=== PATIENT | male | born 1960 | race Caucasian/White ===

== ENCOUNTER → 2020-08-26 | Outpatient (CLI) | payer OTHER ==
[~2020-08-26] MED LIST: ASA81BEC PO; CLINDAMYCIN HC300 MG PO; FAMOTIDINE 40 M40 M1 PO; NITROSTAT0.4 M1 SUBLING; QUESTRAN PACKET4 GM PO; ROSUVASTATIN CA10 MG PO; SUDAFED 12-HOU120 MG PO; TOPROL XL50 MG; VIAGRA100 MG PO
--- NOTE | 2020-08-27 16:22 | CARDNUC ---
[place] [address] CARDIAC NUCLEAR IMAGING REPORT Name: BREANABRII CHRISTINE Room: [facility]#: [id number] Admission: 08/26/20 Attend Phys: Fer Hammond, Discharge: Date of : 56 Date of Service: 08/27/20 1621 Report #: [id number] THIS REPORT FOR: cc: Donnie Wolff MD, David R. MD Liston, Michael J. MD [facility] ~ APPROVED REPORT Imaging Protocol: Stress Tc-99m/Rest Tc-99m 1 day Study performed: 08/26/2020 08:30:00 Indication: s/p CAD CABG, HTN. Patient Location: Out-Patient Stress Tech: Keerthi Harvey Stress Nurse: Melony Ortiz RN Ht: 5 ft 6 in Wt: 207 lbs BSA: 2.03 m2 HR: 70 bpm BP: 111/75 mmHg BMI: 33.40 Medical History Medical History: Chest pain, CAD s/p CABG, gout, GERD, E.D., HTN, HLD, obesity. Medications: METOPROLOL. ROSUVASTATIN, ASA 81MG, NTG Allergies: OMEPRAZOLE Cardiac Risk Factors: Age, Hyperlipidemia, HTN, CAD S/P CABG, OBESITY. Previous Cardiac Procedures: CABG Pretest Chest Pain Characteristics: No chest pain Exercise History: Indeterminate Physical Disabilities: FOOT PAIN, SEVERE GOUT. Meds Held (24 hrs): Metoprolol, NTG. Resting Data Rest SPECT myocardial perfusion imaging was performed in supine position 30 minutes following the intravenous injection of 11.5 mCi of Tc-99m Sestamibi. Time of rest injection: 08:45 The images were gated to evaluate regional wall motion and calculate left ventricular ejection fraction. Administration Route: IV Administration Site: Left [place] [address] CARDIAC NUCLEAR IMAGING REPORT Name: BRII TOUSSAINT [id number] Admission: 08/26/20 Attend Phys: Fer Hammond, Discharge: Date of : 56 Date of Service: 08/27/20 1621 Report #: [id number] Pharmacologic stress test was performed by injecting Regadenoson 0.4 mg IV push over 10-15 seconds immediately followed by the intravenous injection of 34.3 mCi of Tc-99m Sestamibi. Time of stress injection: 10:45 Administration Route: IV Administration Site: Left AC Heart Rate at time of stress injection: 112 bpm. Gated Stress SPECT was performed 40 minutes after stress injection. The images were gated to evaluate regional wall motion and calculate left ventricular ejection fraction. Prone imaging was performed. Stress Test Details Stress Test: Pharmacologic stress testing performed using 0.4 mg of regadenoson per 5 mL given IV over 10 seconds. Reason for pharmacologic stress test: FOOT PAIN, SEVERE GOUT.. HR Max Heart Rate (APMHR): 158 bpm Resting HR: 70 bpm Target HR (85% APMHR): 134 bpm Max HR Achieved: 112 bpm % of APMHR: 70 Recovery HR: 77 bpm BP Resting BP: 111/75 mmHg Max BP: 136/83 mmHg Recovery BP: 122/82 mmHg ECG Resting ECG: Sinus Rhythm Stress ECG: Sinus Tachycardia ST Change: None Arrhythmia: None Recovery ECG: Sinus Rhythm Recovery ST Change: None Recovery Arrhythmia: None Clinical Reason for Termination: Completed protocol Stress Symptoms: NONE VOICED Exercise duration: 00 min 00 sec Exercise capacity: 1.00 METs The patient tolerated Lexiscan infusion without [place] [address] CARDIAC NUCLEAR IMAGING REPORT Name: BRII TOUSSAINT Room: [facility]#: [id number] Admission: 08/26/20 Attend Phys: Fer Hammond, Discharge: Date of : 56 Date of Service: 08/27/20 1621 Report #: [id number] Nurse Comments A 60 YEAR OLD MALE PRESENTED FOR A SITTING LEXISCAN NUCLEAR STRESS TEST. TEST WELL TOLERATED. RECOVERY UNREMARKABLE. PATIENT WAS STABLE AND STATED HE FELT GOOD WHEN ESCORTED TO NUCLEAR MEDICINE FOR IMAGING. Stress ECG Conclusion The baseline twelve-lead EKG shows sinus rhythm without significant ST segment or T wave abnormality. EKGs obtained during and post Lexiscan infusion show sinus rhythm and sinus tachycardia with no significant ST segment or T wave changes when compared to baseline. There were no stress-induced arrhythmias. Study Quality Study: Good Artifact: No artifact Study Data At rest, the left ventricular ejection fraction was 72%.. Post stress, the left ventricular ejection was 72%.. TID = 0.97. Perfusion Perfusion images obtained at rest and post Lexiscan stress show uniform uptake of the radioisotope throughout the myocardium. There were no defects to suggest infarct or ischemia. Wall Motion Normal left ventricular wall motion. Nuclear Conclusion ECG Findings: negative for ischemia Clinical Findings: negative for ischemia Nuclear Findings: negative for ischemia Exercise Capacity: not assessed Left Ventricular Function: normal Risk Study: low Perfusion images show no defect to suggest infarct or ischemia. Left ventricular systolic function is normal on gated studies. This is a low risk study. <Conclusion> The baseline twelve-lead EKG shows sinus rhythm without significant ST segment or T wave abnormality. EKGs obtained during and post Lexiscan infusion show sinus rhythm and sinus [place] [address] CARDIAC NUCLEAR IMAGING REPORT Name: BRII TOUSSAINT Room: [facility]#: [id number] Admission: 08/26/20 Attend Phys: Fer Hammond, Discharge: Date of : 56 Date of Service: 08/27/20 1621 Report #: [id number] segment or T wave changes when compared to baseline. There were no stress-induced arrhythmias. <ELECTRONICALLY SIGNED> By: Michael Mckee MD, FACC 08/27/201620 20 20 Michael Mckee MD, FACC /INF
== END ==
LOC: M.NUC 08:14
PROVIDERS: ATTEND Internal Medicine
DX: I25.10 Atherosclerotic heart disease of native coronary artery without angina pectoris (principal); Z95.1 Presence of aortocoronary bypass graft